=== PATIENT | male | born 1995 | race Hispanic/Latino ===

== ENCOUNTER 2017-12-24 09:37 | Emergency (ER) | payer OTHER ==
--- NOTE | 2017-12-24 10:14 | RAD ---
TWO VIEWS LEFT FEMUR: DATE: 12/24/17. HISTORY: Injury to left femur. Patient collided with another player playing basketball and had immediate pain and is limping now with walking. Symptoms have persisted today and there is now swelling and bruisi ng. FINDINGS: There is no fracture or dislocation involving the left femur. 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 No other osseous abnorm ality. IMPRESSION: No acute osseous abnormality involving the left femur. POS: [facility]
== END 2017-12-24 10:23 ==
LOC: NAV ERS 09:37
DX: S70.12XA Contusion of left thigh, initial encounter (principal); W50.0XXA Accidental hit or strike by another person, initial encounter; Y93.67 Activity, basketball